=== PATIENT | male | born 1970 | race African-American/Black ===

== ENCOUNTER 2021-07-18 20:53 | Emergency (ER) | payer OTHER ==
[2021-07-18] MEDS ORDERED: MIDAZOLAM HCL 2 MG/2 ML SINGLE DOSE VIAL IM ONE (21:09)
[2021-07-18] MEDS ORDERED: MIDAZOLAM HCL 2 MG/2 ML SINGLE DOSE VIAL ONE ×2 (21:10→23:59)
[2021-07-18] MEDS ORDERED: diazePAM CARPU-JECT 10 MG/2 ML DISP.SYRIN IVPUSH ONE (21:30)
[2021-07-18] MEDS ORDERED: diazePAM CARPU-JECT 10 MG/2 ML DISP.SYRIN ONE (21:30)
[2021-07-18] MEDS ORDERED: diazePAM CARPU-JECT 10 MG/2 ML DISP.SYRIN IM ONE (21:57)
[2021-07-18] MEDS ORDERED: MIDAZOLAM HCL 5 MG/1 ML Single Dose Vial IM ONE (21:58)
[2021-07-18 22:09] VITALS: TEMP 98.3; BMI 67.9
[2021-07-18 22:14] LABS: BASO % 0.7 % (0-2.0); EOS % 2.3 % (0-4.5); HEMOGLOBIN 13.7 GM/dL (11.7-16.9); LYMPH % 29.3 % (8-40); MCH 31.8 pg (25.7-33.7); MCHC 34.3 g/dl (32.0-35.9); MEAN CELL VOLUME 92.7 fl (80-96); MEAN PLT VOLUME 6.9 fl (7.5-11.1); MONO % 5.2 % (3.8-10.2); NEUT % 62.5 % (42.8-82.8); PLATELET COUNT 261 10^3/uL (134-434); RBC 4.32 M/mm3 (4.00-5.60); RDW 13.3 % (11.9-15.9); WHITE BLOOD COUNT 7.1 K/mm3 (4.0-10.0)
[2021-07-18] MEDS ORDERED: THIAMINE HCL 200 MG/2 ML VIAL IVPB ONE (22:17)
[2021-07-18 22:20] LABS: INR 1.15 (0.83-1.09); PROTHROMBIN TIME (PATIENT) 13.2 SEC (9.7-13.0)
[2021-07-18 22:22] LABS: ACTIVATED PTT 30.8 SECONDS (25.2-36.5)
[2021-07-18 22:33] LABS: CHLORIDE 110 mmol/L (98-107); SODIUM 142 mmol/L (136-145)
[2021-07-18 22:36] LABS: ANION GAP 8 MMOL/L (8-16); BLOOD UREA NITROGEN 8.1 mg/dL (7-18); CALCIUM 8.8 mg/dL (8.5-10.1); CO2 24 mmol/L (21-32); GLUCOSE,RANDOM 121 mg/dL (74-106)
[2021-07-18 22:37] LABS: ALBUMIN 3.7 g/dl (3.4-5.0)
[2021-07-18 22:39] LABS: CREATININE 1.1 mg/dL (0.55-1.3); SGOT/AST 17 U/L (15-37); SGPT/ALT 24 U/L (13-61)
[2021-07-18 22:40] LABS: BILIRUBIN,TOTAL 0.4 mg/dL (0.2-1); TOT PROT 6.7 g/dl (6.4-8.2)
[2021-07-18 22:42] LABS: ALK PHOS 79 U/L (45-117)
[2021-07-18] MEDS ORDERED: MIDAZOLAM HCL 2 MG/2 ML SINGLE DOSE VIAL IVPUSH ONE (23:57)
[2021-07-19] MEDS ORDERED: THIAMINE HCL 200 MG/2 ML VIAL ONE
[2021-07-19] MEDS ORDERED: HALOPERIDOL LACTATE 5 MG/ML IM ONE (03:24)
[2021-07-19] MEDS ORDERED: HALOPERIDOL LACTATE 5 MG/ML ONE (03:25)
[2021-07-19 04:17] VITALS: BP 125/79; PULSE 59
== END 2021-07-19 04:20 ==
LOC: JER 20:53
PROC: 3E023NZ Introduction of Analgesics, Hypnotics, Sedatives into Muscle, Percutaneous Approach (ICD-10-PCS; principal; 2021-07-18)
PROC: 3E023NZ Introduction of Analgesics, Hypnotics, Sedatives into Muscle, Percutaneous Approach (ICD-10-PCS; 2021-07-18)
PROC: 3E023NZ Introduction of Analgesics, Hypnotics, Sedatives into Muscle, Percutaneous Approach (ICD-10-PCS; 2021-07-18)
PROC: 3E033NZ Introduction of Analgesics, Hypnotics, Sedatives into Peripheral Vein, Percutaneous Approach (ICD-10-PCS; 2021-07-18)
DX: R45.1 Restlessness and agitation (principal)
CPT/HCPCS: 36415; 80053; 80307; 85025; 85610; 85730; 86850; 86900; 86901; 93005; 93010; 99291